=== PATIENT | male | born 1975 | race Caucasian/White ===

== ENCOUNTER 2021-11-09 11:28 | Emergency (ER) | payer OTHER ==
[~2021-11-09] VITALS: Ht 177.8 cm; Wt 104.3 kg
[~2021-11-09 11:28] MED LIST: CLONAZEPAM PO; DEPAKOTE ER500 MG PO; FISHOIL PO; FLUOXETINE HCL40 MG; IBUPROFEN 800800 MG PO; LISINOPRIL10 MG; NABUMETONE 500500 M1 PO; NEURONTIN 300300 M1 PO; NEXIUM40 MG PO; NORCO 5-325 TA1 EACH PO; NORTRIPTYLINE H25 M3 PO; PERCOCET 5-3251 EACH PO; PRILOSEC 20 MG20 MG PO; ULTRAM 50MG TAB50 MG PO; VITAMIN E 400I400 I1 PO
[2021-11-09 12:08] LABS: ABSOLUTE BASOPHILS 0.1 thou/uL (0.0-0.2); ABSOLUTE LYMPHOCYTES 2.4 thou/uL (0.8-5.3); ABSOLUTE NEUTROPHILS 7.6 thou/uL (1.6-8.1); BASOPHILS 0.6 %; NUCLEATED RBCS 0 /100WBC; PLATELET COUNT* 224 thou/uL (150-400); RDW-CV 13.4 % (10.5-14.5)
[2021-11-09 12:09] LABS: ABSOLUTE EOSINOPHILS 0.3 thou/uL (0.0-0.7); ABSOLUTE MONOCYTES 0.9 thou/uL (0.0-1.2); EOSINOPHILS 2.9 %; HEMATOCRIT 47.4 % (42.0-52.0); HEMOGLOBIN 16.2 gm/dL (14.0-18.0); LYMPHOCYTES 21.1 %; MCH 31.5 pg (26.0-34.0); MCHC 34.3 g/dL (28.0-37.0); MONOCYTES 8.1 %; POLYS 67.3 %; RBC 5.16 mil/uL (4.50-6.00); WBC 11.3 thou/uL (4.0-11.0)
[2021-11-09 12:20] LABS: CALCIUM 8.9 mg/dL (8.5-10.1); CREATININE 1.1 mg/dL (0.6-1.3); POTASSIUM 4.1 mmol/L (3.5-5.1)
[2021-11-09 12:31] LABS: ALBUMIN 3.6 g/dL (3.4-5.0); MAGNESIUM 2.1 mg/dL (1.8-2.4); TOTAL BILIRUBIN 0.4 mg/dL (<0.1-1.0); TOTAL PROTEIN 8.1 g/dL (6.4-8.2)
[2021-11-09 14:29] VITALS: BP 149/97
--- NOTE | 2021-11-10 13:42 | EKG ---
[place] [address] ELECTROCARDIOGRAM REPORT Name: MARGIE ORELLANA Room: [facility]#: [id number] Admission: 11/09/21 Attend Phys: Discharge: 11/09/21 Date of : 77 Date of Service: 11/09/21 1132 Report #: [id number] THIS REPORT FOR: //name// [facility] ED Test Date: 2021-11-09 Test Time: 11:32:57 Pat Name: MARGIE ORELLANA Department: Room: Gender: Diplomatic Officer: : 1975 Requested By: Homer Paiz Order Number: [id number] MD: Miky Mattson Measurements Intervals [place] Rate: 83 P: 30 CO: 175 QRS: -21 QRSD: 141 T: 127 QT: 418 QTc: 492 Interpretive Statements Sinus rhythm Ventricular premature complex Left bundle branch block Baseline wander in lead(s) V2,V3 No previous ECG available for comparison Electronically Signed On 11-10-2021 13:42:40 [employer] by Miky Mattson [email or web address] <ELECTRONICALLY SIGNED> By: Miky Mattson MD, FAC 11/10/21 1342 1132 113 Miky Mattson MD, [facility] /EPI
== END 2021-11-09 14:29 | disposition home or self-care (01) ==
LOC: M.ERS 11:28
PROVIDERS: Family Medicine
DX: R07.89 Other chest pain (principal); K21.9 Gastro-esophageal reflux disease without esophagitis; I10 Essential (primary) hypertension; F17.210 Nicotine dependence, cigarettes, uncomplicated; Z79.899 Other long term (current) drug therapy